=== PATIENT | female | born 1985 | race African-American/Black ===

== ENCOUNTER 2021-01-26 20:28 | Emergency (ER) | payer OTHER ==
[2021-01-26 20:42] VITALS: BP 147/78; PULSE 80; TEMP 98.3; BMI 69.2
[2021-01-26] MEDS ORDERED: KETOROLAC TROMETHAMINE 60 MG/2 ML VIAL IM ONE (21:23)
[2021-01-26] MEDS ORDERED: KETOROLAC TROMETHAMINE 60 MG/2 ML VIAL ONE (21:24)
== END 2021-01-26 21:54 | disposition home or self-care (01) ==
LOC: FER 20:28
PROC: 3E0233Z Introduction of Anti-inflammatory into Muscle, Percutaneous Approach (ICD-10-PCS; principal; 2021-01-26)
DX: S46.911A Strain of unspecified muscle, fascia and tendon at shoulder and upper arm level, right arm, initial encounter (principal); S16.1XXA Strain of muscle, fascia and tendon at neck level, initial encounter
CPT/HCPCS: 73030-TC-RT-FY; 99284-25